=== PATIENT | male | born 1950 | race Caucasian/White ===

== ENCOUNTER 2022-02-16 00:13 | Emergency (ER) | payer MEDICARE ==
[~2022-02-16 00:13] MED LIST: FLOMAX 0.4 MG0.4 MG PO; IBUPROFEN800 MG PO; PERCOCET 5-3251 EACH PO; PHENERGAN25 M1 PO
[2022-02-16 00:27] LABS: BASOPHIL 0.3 % (0-2); EOSINOPHIL 4.6 % (0-7); HCT 43.7 % (42.0-52.0); HGB 14.9 g/dl (13.2-18.0); LYMPHOCYTE 20.6 % (15-48); MCH 31.6 pg (25.0-31.0); MCHC 34.1 g/dL (32.0-36.0); MCV 92.8 fL (78.0-100.0); MONOCYTE 10.2 % (0-12); MPV 10.1 fL (6.0-9.5); NEUTROPHIL 64.1 % (41-80); NRBC 0; PLT 205 K/uL (150-400); RBC 4.71 M/uL (4.70-6.00); RDW 11.9 % (11.5-14.0); WBC 6.5 K/uL (4.0-10.5)
[2022-02-16 00:43] LABS: INR 1.03 (0.9-1.2); PROTHROMBIN TIME 12.9 SECONDS (11.8-13.4); PTT 23.3 SECONDS (24.4-34.7)
[2022-02-16 00:55] LABS: ALBUMIN 3.8 g/dL (3.4-5.0); BILIRUBIN - TOTAL 0.4 mg/dL (0.2-1.0); BUN/CREAT RATIO (CALC) 18.6 RATIO; CREATININE 1.02 mg/dL (0.67-1.17); GLOBULIN (CALCULATION) 2.4 g/dL; MAGNESIUM 1.8 mg/dL (1.8-2.4); POTASSIUM 4.3 mmol/L (3.5-5.1); TOTAL PROTEIN 6.2 g/dL (6.4-8.2)
== END 2022-02-16 04:56 | disposition home or self-care (01) ==
LOC: FER 00:13
PROVIDERS: Emergency Medicine
DX: R07.89 Other chest pain (principal); K21.9 Gastro-esophageal reflux disease without esophagitis; I25.10 Atherosclerotic heart disease of native coronary artery without angina pectoris; Z95.1 Presence of aortocoronary bypass graft; Z88.0 Allergy status to penicillin; Z88.5 Allergy status to narcotic agent
CPT/HCPCS: 36415; 71045; 80053; 83735; 83880; 84443; 84484; 85025; 85610; 85730; 93005